=== PATIENT | female | born 1970 | race Caucasian/White ===

== ENCOUNTER 2017-01-21 03:00 | Emergency (ER) | payer BC ==
[~2017-01-21] VITALS: Ht 167.6 cm; Wt 123.9 kg
[~2017-01-21 03:00] MED LIST: AZITHROMYCIN250 MG1 PO; BACTRIM,SEPT1 TABLET PO; FLONASE16 G1 BOTH NARES; MUCUS ER600 MG PO; NASACORT10.8 ML BOTH NARES; TRAMADOL HCL50 MG PO; ZITHROMAX Z-PA250 MG PO
[2017-01-21 03:53] LABS: MCH 27.5 PG (29.0-34.0); MCHC 32.3 G/DL (30.0-36.0); MCV 85.3 FL (83-99); MEAN PLAT.VOLUME 11.8 uM^3 (9.5-12.4); PLATELET COUNT 220 K/uL (156-360); RBC DIS.WIDTH-CV 13.3 % (11.8-14.6); RBC DIS.WIDTH-SD 41.4 % (39-53); RED BLOOD COUNT 4.69 M/uL (3.80-5.20); WHITE BLOOD COUNT 6.8 K/uL (4.1-10.2)
[2017-01-21 04:03] LABS: ADD MIUA? NO; BILIRUBIN NEGATIVE; BLOOD NEGATIVE; COLOR YELLOW ((YELLOW)); GLUCOSE (STRIP) NEGATIVE; KETONES NEGATIVE; LEUKOCYTES NEGATIVE; NITRITE NEGATIVE; PROTEIN (STRIP) NEGATIVE; SPECIFIC GRAVITY 1.011 (1.000-1.030); UCUL ADDED? NO; UROBILINOGEN 0.2 MG/DL (0.2-1.0)
[2017-01-21 04:04] LABS: CHLORIDE 106 mEq/L (99-109); POTASSIUM 3.6 mEq/L (3.7-5.4); SODIUM 140 mEq/L (136-147)
[2017-01-21 04:06] LABS: GLUCOSE 118 mg/dL (70-99)
[2017-01-21 04:08] LABS: ANION GAP 10 MEQ/L (2-14); TOTAL BILIRUBIN 0.3 mg/dL (0.0-1.0)
[2017-01-21 04:10] LABS: ALKALINE PHOSPHATASE 76 IU/L (3-129); GFR ESTIMATE (CALCULATED) > 59 mL/min/
[2017-01-21 04:11] LABS: UREA NITROGEN (BUN) 10 mg/dL (9-23)
[2017-01-21 04:14] LABS: LIPASE 5 U/L (1.0-51.0)
[2017-01-21 04:22] LABS: QUANTITATIVE HCG < 4.0 MIU/ML
[2017-01-21] MEDS ORDERED: NAPROSYN500 MG PO (04:34)
[2017-01-21 04:50] VITALS: BP 140/83
== END 2017-01-21 04:51 | disposition home or self-care (01) ==
LOC: EME 03:00
PROVIDERS: Emergency Medicine
DX: R51 Headache (principal); N83.201 Unspecified ovarian cyst, right side
CPT/HCPCS: 76856; 80053; 81003; 83690; 84702; 85027; 99281; 99284; J0780; J1200; J7030

== ENCOUNTER 2017-05-28 09:25 | Day surgery (SDC) | payer BC ==
[~2017-05-28] VITALS: Ht 165.1 cm; Wt 115.7 kg
[~2017-05-28 09:25] MED LIST changes: +CLARITIN5 MG/5 ML PO; +NAPROSYN500 MG PO; +NON-ASPIRIN PA500 M1 PO; +ZANTAC150 MG PO
[2017-05-28 10:24] VITALS: BP 169/80
[2017-05-28] MEDS ORDERED: NORCO 5/3251 TABLET PO ×2 (14:18→14:19)
[2017-05-28 14:48] VITALS: BP 165/75
[2017-05-28 15:48] VITALS: BP 135/63
[2017-05-28 17:19] VITALS: BP 171/80
[2017-06-02 12:53] LABS: INTERNAL CONTROL VALID? YES
== END 2017-05-28 17:20 | disposition home or self-care (01) ==
LOC: SDC 09:25
PROVIDERS: Surgery
DX: K80.10 Calculus of gallbladder with chronic cholecystitis without obstruction (principal); I10 Essential (primary) hypertension; F41.8 Other specified anxiety disorders; K21.9 Gastro-esophageal reflux disease without esophagitis; E66.01 Morbid (severe) obesity due to excess calories; Z68.41 Body mass index [BMI] 40.0-44.9, adult; Z88.0 Allergy status to penicillin
CPT/HCPCS: 74300; 84703; 88304; C1769; J0131; J1100; J1170; J1885; J2250; J2405; J2710; J3010; S0020

== ENCOUNTER 2017-05-31 09:34 | Emergency (ER) | payer BC ==
[~2017-05-31] VITALS: Ht 165.1 cm; Wt 121.4 kg
[~2017-05-31 09:34] MED LIST changes: +NORCO 5/3251 TABLET PO
[2017-05-31 11:54] LABS: ADD MIUA? YES; BILIRUBIN NEGATIVE; BLOOD LARGE; COLOR YELLOW ((YELLOW)); GLUCOSE (STRIP) NEGATIVE; KETONES NEGATIVE; LEUKOCYTES NEGATIVE; NITRITE NEGATIVE; PROTEIN (STRIP) NEGATIVE; UROBILINOGEN 0.2 MG/DL (0.2-1.0)
[2017-05-31 12:12] LABS: EOSINOPHIL (%) 1.1 % (0-5); EOSINOPHIL COUNT 0.1 K/uL (0-0.3); IMMATURE GRANULOCYTE (%) 0.3 % (0.0-0.7); INSTRUMENT ABS NEUTROPHIL CT 5.2 K/uL; LYMPHOCYTE COUNT 1.4 K/uL (1.0-2.8); MCH 28.4 PG (29.0-34.0); MCV 88.9 FL (83-99); MEAN PLAT.VOLUME 13.4 uM^3 (9.5-12.4); MONOCYTE (%) 4.8 % (3-12); MONOCYTE COUNT 0.3 K/uL (0-0.8); NEUTROPHIL (%) 73.4 % (45-76); NEUTROPHIL COUNT 5.2 K/uL (1.8-6.4); PLATELET COUNT 236 K/uL (156-360); RBC DIS.WIDTH-CV 13.7 % (11.8-14.6); RBC DIS.WIDTH-SD 44.6 % (39-53); RED BLOOD COUNT 4.61 M/uL (3.80-5.20); WHITE BLOOD COUNT 7.1 K/uL (4.1-10.2)
[2017-05-31 12:15] LABS: BACTERIA NONE SEEN /HPF; EPITHELIAL CELLS RARE /HPF; MUCUS NONE SEEN /LPF; RED BLOOD CELLS TNTC /HPF (0-5); UNCLASSIFIED CRYSTALS 3+ /HPF; WHITE BLOOD CELLS 0-5 /HPF (0-5)
[2017-05-31 12:27] LABS: CHLORIDE 107 mEq/L (99-109); POTASSIUM 3.5 mEq/L (3.7-5.4); SODIUM 141 mEq/L (136-147)
[2017-05-31 12:29] LABS: GLUCOSE 91 mg/dL (70-99)
[2017-05-31 12:30] LABS: ANION GAP 10 MEQ/L (2-14)
[2017-05-31 12:31] LABS: TOTAL BILIRUBIN 0.4 mg/dL (0.0-1.0)
[2017-05-31 12:33] LABS: ALKALINE PHOSPHATASE 98 IU/L (3-129); GFR ESTIMATE (CALCULATED) > 59 mL/min/
[2017-05-31 12:34] LABS: UREA NITROGEN (BUN) 8 mg/dL (9-23)
[2017-05-31 12:36] LABS: LIPASE 6 U/L (1.0-51.0)
[2017-05-31 16:53] VITALS: BP 146/70
== END 2017-05-31 16:54 | disposition home or self-care (01) ==
LOC: EME 09:34
PROVIDERS: Physician Assistant
DX: G89.18 Other acute postprocedural pain (principal); R10.11 Right upper quadrant pain; R20.2 Paresthesia of skin; Z90.49 Acquired absence of other specified parts of digestive tract; I10 Essential (primary) hypertension; F32.9 Major depressive disorder, single episode, unspecified; Z88.0 Allergy status to penicillin; Z88.8 Allergy status to other drugs, medicaments and biological substances; Z91.040 Latex allergy status
CPT/HCPCS: 74177; 80053; 81003; 83690; 85025; 85379; 93970; 99281; 99284; J7030

== ENCOUNTER 2017-07-05 16:44 | Emergency (ER) | payer BC ==
[~2017-07-05] VITALS: Ht 165.1 cm; Wt 97.9 kg
[2017-07-05] MEDS ORDERED: FIORICET 50-301 EAC1 PO (20:32)
[2017-07-05 21:05] VITALS: BP 153/92
== END 2017-07-05 21:06 | disposition home or self-care (01) ==
LOC: EME 16:44
DX: R51 Headache (principal); I10 Essential (primary) hypertension; F32.9 Major depressive disorder, single episode, unspecified; Z90.49 Acquired absence of other specified parts of digestive tract; Z88.0 Allergy status to penicillin; Z88.8 Allergy status to other drugs, medicaments and biological substances
CPT/HCPCS: 70450; 99281; 99284